=== PATIENT | female | born 1950 | race Caucasian/White ===

== ENCOUNTER 2017-01-13 20:06 | Emergency (ER) | payer OTHER ==
[~2017-01-13] VITALS: Ht 172.7 cm; Wt 92.0 kg
[2017-01-13 20:08] VITALS: BP 188/86; PULSE 101; RESP 18; TEMP 98; O2SAT 99
--- NOTE | 2017-01-13 20:42 | PD ---
HPI Chief Complaint: Injury Time Seen by Provider: 20:37 Travel History International Travel<30 days: No Contact w/Intl Traveler<30days: No Traveled to known affect area: No History of Present Illness HPI 66-year-old [id number] white female presents to emergency department accompanied by her significant other for evaluation of right arm pain. She had a trip and fall in [place] sometime around 6:30 this evening. She had fallen onto her right arm. She complains of pain in the mid arm. She does not recall hearing or feeling a crack or pop. She has had significant pain with only small movements. She did not hit her head. She did not injure her neck or back. No numbness or tingling. Pain is moderate but can be severe with attempts to move. She has some relief with holding the arm up against her body. [facility] Past Medical History Narrative Medical Anxiety, GERD, hypercholesterolemia, hypertension, arthritis Tetanus Vaccination: < 5 Years Past Surgical History Narrative Surgical Tubal ligation Social History Alcohol Use: Yes Tobacco Use: No Substance Use: No Allergies-Medications (Allergen,Severity, Reaction): Coded Allergies: No Known Allergies (Unverified , 01/13/17) Reported Meds & Prescriptions Reported Meds & Active Scripts Active Reported Lisinopril 5 Mg Tab 5 Mg PO DAILY Pantoprazole (Pantoprazole Sodium) 40 Mg Tab 40 Mg PO DAILY Crestor (Rosuvastatin Calcium) 5 Mg Tab 5 Mg PO HS Lexapro (Escitalopram Oxalate) 10 Mg Tab 10 Mg PO DAILY Ibuprofen 800 Mg Tab 800 Mg PO BID Review of Systems Except as stated in HPI: all other systems reviewed are Neg Physical Exam Narrative GENERAL: Well-developed, well-nourished in no apparent distress. Nontoxic appearing. HEAD: Normocephalic, atraumatic. EYES: Pupils equal round and reactive. Extraocular motions intact. No scleral icterus. No injection or drainage. ENT: Nose clear. Throat without erythema, tonsillar hypertrophy or exudate. Uvula midline. Airway patent. NECK: Trachea midline. Supple, nontender, moves head freely. No central bony tenderness or spasm. CARDIOVASCULAR: Regular rate and rhythm without murmurs, gallops, or rubs. RESPIRATORY: Clear to auscultation. Breath sounds equal bilaterally. No wheezes , rales, or rhonchi. GASTROINTESTINAL: Abdomen soft, non-tender, nondistended. No hepato-splenomegaly , or palpable masses. No guarding. EXTREMITIES: No clubbing, cyanosis, or edema. Examination of the right upper extremity reveals deformity of the mid humerus with moderate swelling. Tender to touch. No pain in the glenohumeral joint, elbow, wrist or hand. She has intact median/ulnar/radial nerves. The left upper extremity is unremarkable the left lower and right lower extremities are unremarkable. BACK: Nontender without deformity. No flank tenderness. NEUROLOGICAL: Awake, alert and oriented x 3 .Cranial nerves grossly intact. Motor and sensory grossly within normal limits. Normal speech. Data Data Last Documented VS Vital Signs Date Time Temp Pulse Resp B/P Pulse Ox O2 Delivery O2 Flow Rate FiO2 01/13/17 21:07 99 18 99 Room Air 01/13/17 20:08 98.0 188/86 Orders Humerus (Min 2vws) (01/13/17 20:36) Ice/Cold Pack (01/13/17 20:36) Splint Or Brace Apply/Monitor (01/13/17 20:36) Ondansetron Odt (Zofran Odt) (01/13/17 21:15) Morphine Inj (Morphine Inj) (01/13/17 21:15) MDM Medical Decision Making Medical Screen Exam Complete: Yes Emergency Medical Condition: Yes Medical Record Reviewed: Yes Interpretation(s) Last 24 hours Impressions Humerus X-Ray 01/13/172035 Signed Impressions: Service Date/Time: Friday, January 13, 2017 21:10 - CONCLUSION: Angulated displaced fracture of the proximal shaft right humerus. Monty Lagunas MD Differential Diagnosis MDM: High Differential diagnoses: Fracture, sprain, strain, dislocation, contusion, neurovascular injury Narrative Course Patient's place in a sling and given an ice pack. X-ray of the right humerus is been ordered. Patient has been nothing by mouth since 6:30 this evening. Patient's x-ray reveals a angulated proximal third humerus fracture. The patient is given morphine 8 mg IM and Zofran 4 mg by mouth. The patient is then placed in a coaptation splint and given a sling. Distal right closed proximal humerus fracture Physician Communication Physician Communication The case has been discussed with Dr. Faustin. He has asked that the patient be placed in a coaptation splint, sling and he will see her in follow-up as an outpatient. Diagnosis Primary Impression: Closed fracture of right proximal humerus Patient Instructions: General Instructions, Narcotic given in the ED Departure Forms: Tests/Procedures, Work Release Special Instructions: No work 3 days. Additional Instructions: Rest. Sling and splint. Lortab for pain. Follow-up with Dr. Faustin. Call his office Sunday. Med/Other Pt SpecificInfo: Prescription(s) given Disposition: 01 DISCHARGE HOME Condition: Stable Arnav Landry Jan 13, 2017 20:42
[2017-01-13] MEDS ORDERED: MORPHINE SULFATE 8 MG/ML INJ IM ONE (21:15)
[2017-01-13] MEDS ORDERED: ONDANSETRON ODT 4 MG TAB PO ONE (21:15)
[2017-01-13] MEDS ORDERED: PANT40TA3 PO (21:17)
[2017-01-13] MEDS ORDERED: IBUP800T23 PO (21:17)
[2017-01-13] MEDS ORDERED: LISI-519 PO (21:17)
[2017-01-13] MEDS ORDERED: ROSU5 PO (21:17)
[2017-01-13] MEDS ORDERED: LEXA10TA PO (21:17)
--- NOTE | 2017-01-13 21:18 | RADRPT ---
EXAM DATE/TIME: 01/13/2017 21:10 [facility] COMPARISON: No previous studies available for comparison. INDICATIONS : Right arm Pain MEDICAL HISTORY : None. SURGICAL HISTORY : None. ENCOUNTER: Initial ACUITY: 1 day PAIN SCORE: 10/10 LOCATION: Right upper extremity FINDINGS: Two view examination of the right humerus demonstrates an angulated displaced fracture of the proxima l shaft of the humerus. No definite joint dislocation is seen.. There is soft tissue swelling of the upper arm. CONCLUSION: Angulated displaced fracture of the proximal shaft right humerus. Monty Lagunas MD on January 13, 2017 at 21:16 Board Certified Radiologist. This report was verified electronically.
[2017-01-13] MEDS ORDERED: HYDR-3533 PO (21:46)
== END 2017-01-13 22:33 | disposition home or self-care (01) ==
LOC: NEPD 20:06
DX: S42.291A Other displaced fracture of upper end of right humerus, initial encounter for closed fracture (principal); W01.0XXA Fall on same level from slipping, tripping and stumbling without subsequent striking against object, initial encounter
CPT/HCPCS: 29125; 73060; 96372; 99284; J2270